=== PATIENT | female | born 1960 | race Caucasian/White ===

== ENCOUNTER 2021-12-04 00:25 | Emergency (ER) | payer SELFPAY ==
[2021-12-04] MEDS ORDERED: Ondansetron PF 4 MG/2 ML Vial ONE (00:51)
[2021-12-04] MEDS ORDERED: Boostrix 0.5 ML (Tdap) VIAL ONE (00:51)
[2021-12-04] MEDS ORDERED: Morphine 4 MG/ML VIAL ONE (00:51)
[2021-12-04] MEDS ORDERED: Propofol 1,000 MG/100 ML VIAL IV ONE (01:19)
[2021-12-04] MEDS ORDERED: PROPOFOL 20 ML ONE (01:20)
== END 2021-12-04 02:07 | disposition home or self-care (01) ==
LOC: CSHERS 00:25
DX: S92.132A Displaced fracture of posterior process of left talus, initial encounter for closed fracture (principal); I10 Essential (primary) hypertension; E11.9 Type 2 diabetes mellitus without complications; Z79.84 Long term (current) use of oral hypoglycemic drugs; Z79.899 Other long term (current) drug therapy; X50.9XXA Other and unspecified overexertion or strenuous movements or postures, initial encounter
CPT/HCPCS: 90715; J2270; J2405; J2704

== ENCOUNTER 2021-12-04 08:16 | Emergency (ER) | payer BC, SELFPAY ==
[2021-12-04] MEDS ORDERED: Morphine 4 MG/ML VIAL ONE ×2 (08:47→15:18)
[2021-12-04] MEDS ORDERED: Ketorolac Tromethamine 30 MG/ML VIAL ONE (08:47)
[2021-12-04 09:03] LABS: #Basophils 0.1 10x3/uL (0.0-0.2); #Neutrophils 8.2 10x3/uL (1.5-8.4); %Basophils 0.6 % (0.0-2.0); %Eosinophils 0.3 % (0.0-6.0); %Lymphocytes 14.7 % (18.0-47.0); %Monocytes 8.7 % (0.0-10.0); %Neutrophils 75.4 % (40.0-75.0); Hemoglobin 10.8 g/dL (12.0-15.5); Mean Corpuscular HGB CONC 33.3 g/dL (32.0-36.0); Mean Corpuscular Hemoglobin 28.8 pg (27.0-33.0); Mean Corpuscular Volume 86.4 fl (81.6-98.3); Mean Platelet Volume 10.4 fl (7.4-10.4); Platelet Count 196 10x3/uL (150-450); RBC Distribution Width 13.2 % (11.5-14.5); Red Blood Cell (RBC) Count 3.75 10x6/uL (3.90-5.03); White Blood Cell (WBC) Count 10.9 10x3/uL (3.5-10.5)
[2021-12-04 09:16] LABS: ALT (SGPT) 40 U/L (8-55); AST (SGOT) 30 U/L (5-34); Albumin 4.2 g/dL (3.5-5.0); Alkaline Phosphatase 60 U/L (40-110); Anion Gap 19 mmol/L (10-20); BUN (Urea Nitrogen) 14 mg/dL (9.8-20.1); Bilirubin, Total 1.2 mg/dL (0.2-1.2); Calc. Creatinine Clearance 0 mL/min (70-130); Calcium 8.8 mg/dL (7.8-10.44); Carbon Dioxide 22 mmol/L (22-29); Chloride 90 mmol/L (98-107); Estimated GFR 102; Globulin 2.5 g/dL (2.4-3.5); Glucose 218 mg/dL (70-105); Potassium 4.6 mmol/L (3.5-5.1); Protein, Total 6.7 g/dL (6.0-8.3); Sodium 126 mmol/L (136-145)
[2021-12-04 09:49] LABS: SARS-CoV-2 NAA Rapid Test Not Detected (NotDetected)
[2021-12-04] MEDS ORDERED: Ondansetron PF 4 MG/2 ML Vial ONE ×4 (09:58→15:18)
[2021-12-04] MEDS ORDERED: Ketamine 50 MG/ML (10ML VIAL) ONE (10:34)
[2021-12-04] MEDS ORDERED: HYDROmorphone 0.5 MG/0.5 ML SYRINGE ONE (14:31)
== END 2021-12-04 15:21 | disposition short-term general hospital (02) ==
LOC: CSHERS 08:16
DX: S82.52XA Displaced fracture of medial malleolus of left tibia, initial encounter for closed fracture (principal); E11.9 Type 2 diabetes mellitus without complications; I10 Essential (primary) hypertension; Z20.822 Contact with and (suspected) exposure to COVID-19; Z79.899 Other long term (current) drug therapy; Z79.84 Long term (current) use of oral hypoglycemic drugs; X58.XXXA Exposure to other specified factors, initial encounter; S92.132A Displaced fracture of posterior process of left talus, initial encounter for closed fracture; X50.9XXA Other and unspecified overexertion or strenuous movements or postures, initial encounter
CPT/HCPCS: 27840; 28570; 80053; 85025; 90471; 90715; 96374; 96375; 96376; 99152; J1170; J1885; J2270; J2405; J2704; U0002

== ENCOUNTER 2022-01-18 11:06 | Outpatient (CLI) | payer BC | END 2022-01-18 11:07 | disposition home or self-care (01) | LOC: CSHWCC 11:06 | PROVIDERS: ATTEND Nurse Practitioner Family | DX: T81.89XD Other complications of procedures, not elsewhere classified, subsequent encounter (principal) | CPT/HCPCS: 99212; G0463 ==

== ENCOUNTER 2022-01-24 15:25 | Outpatient (CLI) | payer BC | END 2022-01-24 15:26 | disposition home or self-care (01) | LOC: CSHWCC 15:25 | PROVIDERS: ATTEND Preventive Medicine Undersea and Hyperbaric Medicine | DX: T81.89XD Other complications of procedures, not elsewhere classified, subsequent encounter (principal) | CPT/HCPCS: 99212; G0463 ==

== ENCOUNTER 2022-01-27 15:06 | Outpatient (CLI) | payer BC | END 2022-01-27 15:07 | disposition home or self-care (01) | LOC: CSHWCC 15:06 | PROVIDERS: ATTEND Preventive Medicine Undersea and Hyperbaric Medicine | DX: T81.89XD Other complications of procedures, not elsewhere classified, subsequent encounter (principal) ==

== ENCOUNTER 2022-02-03 10:34 | Outpatient (CLI) | payer BC | END 2022-02-03 10:35 | disposition home or self-care (01) | LOC: CSHWCC 10:34 | PROVIDERS: ATTEND Preventive Medicine Undersea and Hyperbaric Medicine | DX: T81.89XD Other complications of procedures, not elsewhere classified, subsequent encounter (principal) ==

== ENCOUNTER 2022-02-09 08:52 | Outpatient (CLI) | payer BC | END 2022-02-09 08:53 | disposition home or self-care (01) | LOC: CSHWCC 08:52 | PROVIDERS: ATTEND Preventive Medicine Undersea and Hyperbaric Medicine | DX: T81.89XD Other complications of procedures, not elsewhere classified, subsequent encounter (principal) | CPT/HCPCS: 99213; G0463 ==

== ENCOUNTER 2022-02-23 12:48 | Outpatient (CLI) | payer BC | END 2022-02-23 12:49 | disposition home or self-care (01) | LOC: CSHWCC 12:48 | PROVIDERS: ATTEND Preventive Medicine Undersea and Hyperbaric Medicine | DX: T81.89XD Other complications of procedures, not elsewhere classified, subsequent encounter (principal) | CPT/HCPCS: 99213; G0463 ==

== ENCOUNTER 2022-03-07 10:35 | Outpatient (CLI) | payer BC | END 2022-03-07 10:36 | disposition home or self-care (01) | LOC: CSHWCC 10:35 | PROVIDERS: ATTEND Preventive Medicine Undersea and Hyperbaric Medicine | DX: T81.89XD Other complications of procedures, not elsewhere classified, subsequent encounter (principal) | CPT/HCPCS: 99212; G0463 ==